=== PATIENT | female | born 1955 | race Caucasian/White ===

== ENCOUNTER 2023-02-19 11:27 | Outpatient (CLI) | payer OTHER, SELFPAY ==
--- NOTE | ~2023-02-19 | XR_ITS ---
Right foot Technique: AP, oblique, and lateral views were obtained. Clinical History: Pain Findings: No acute fracture or dislocation is seen. Osseous alignment is anatomic. Minimal degenerati ve change noted at the first MTP joint. Plantar calcaneal spur noted. Soft tissues are unremarkable. 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 Reviewed, dictated and finalized at location . 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
== END 2023-02-19 11:28 | disposition home or self-care (01) ==
PROVIDERS: PCP Internal Medicine; Visit Provider Internal Medicine
DX: M79.671 Pain in right foot (principal); R93.6 Abnormal findings on diagnostic imaging of limbs
CPT/HCPCS: 73630

== ENCOUNTER 2025-07-08 13:40 | Outpatient (CLI) | payer OTHER, SELFPAY ==
--- NOTE | ~2025-07-08 | XR_ITS ---
EXAMINATION: XR hand RT min 3V, 07/08/2025 13:50 CDT HISTORY: PAIN IN RT AND LT HAND COMPARISON: No comparisons available. Findings: No acute fracture or malalignment. 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 Impression: No acute fracture or malalignment. Reviewed, dictated and finalized at location A. Impression: No acute fracture or malalignment.
--- NOTE | ~2025-07-08 | XR_ITS ---
EXAMINATION: XR hand LT min 3V, 07/08/2025 13:50 CDT HISTORY: PAIN IN RT AND LT HAND COMPARISON: No comparisons available. Findings: No acute fracture or malalignment. Severe degenerative changes of the distal and proximal interphalangeal joints and the first metacarpal carpal joint, no erosions identified. Soft tissues unremarkable. Impression: No acute fracture or malalignment. Reviewed, dictated and finalized at location A. Impression: No acute fracture or malalignment.
== END 2025-07-08 13:41 | disposition home or self-care (01) ==
LOC: MICIMG 13:43
PROVIDERS: PCP Internal Medicine; Visit Provider Internal Medicine
DX: M19.041 Primary osteoarthritis, right hand (principal); M19.042 Primary osteoarthritis, left hand
CPT/HCPCS: 73130